=== PATIENT | male | born 1965 | race African-American/Black ===

== ENCOUNTER 2017-09-20 17:00 | Emergency (ER) | payer SELFPAY ==
[2017-09-20 17:21] LABS: ABSOLUTE EOSINOPHILS # (AUTO) 0.1 10^3/uL (0.0-0.6); ABSOLUTE LYMPHOCYTES (AUTO) 3.3 10^3/uL (0.5-4.7); ABSOLUTE MONOCYTES (AUTO) 0.4 10^3/uL (0.1-1.4); ABSOLUTE NEUT (AUTO) 4.2 10^3/uL (1.7-8.2); BASOPHILS % (AUTO) 0.5 % (0-2); EOSINOPHILS % (AUTO) 1.6 % (0-6); HEMATOCRIT 52.2 % (37.9-51.0); HEMOGLOBIN 17.4 g/dL (13.5-17.0); LYMPHOCYTES % (AUTO) 40.9 % (13-45); MEAN CORPUSCULAR HEMOGLOBIN 28.9 pg (27.0-33.4); MEAN CORPUSCULAR HGB CONC 33.2 g/dL (32.0-36.0); MEAN CORPUSCULAR VOLUME 87 fl (80-97); MONOCYTES % (AUTO) 5.3 % (3-13); PLATELET COUNT 263 10^3/uL (150-450); RED CELL DISTRIBUTION WIDTH 14.6 % (11.5-14.0); SEGMENTED NEUTROPHILS % (AUTO) 51.7 % (42-78); TOTAL CELLS COUNTED % (AUTO) 100 %; WHITE BLOOD COUNT 8.1 10^3/uL (4.0-10.5)
--- NOTE | 2017-09-20 17:51 | ER Document Report ---
ED General - General Chief Complaint: Probable Seizure Stated Complaint: ALTERED MENTAL STATUS Time Seen by Provider: 09/20/17 17:38 Mode of Arrival: Medic Information source: Patient, Emergency Med Personnel Notes: 51-year-old male with diabetes, hypertension presents after seizure-like activity while at work. Per EMS upon their arrival patient was confused. Bystanders described that the patient had a change of color, was guided to the ground and then had some tremulous movements that lasted approximately 4 minutes. Upon my exam patient is alert awake and cooperative. He states prior to this episode he states he became very hot, nauseous. he denies any preceding chest pain or sob. Patient reports that he ate lunch at a [employer] restaurant and shortly after he entered went outside into the heat this occurred. Patient states that he thinks he has been dehydrated recently. He denies any nausea, vomiting or diarrhea. He does admit to noncompliance with his blood pressure and diabetic medication, for no particular reason. - HPI Onset: Just prior to arrival Onset/Duration: Sudden Quality of pain: No pain Associated symptoms: Nausea Exacerbated by: Denies Relieved by: Denies Similar symptoms previously: No Recently seen / treated by doctor: No - Related Data Allergies/Adverse Reactions: No Known Allergies Allergy (Unverified 09/20/17 17:30) Past Medical History - General Information source: Patient, Emergency Med Personnel, [facility] Records - Social History Smoking Status: Current Every Day Smoker Smoking Education Provided: Yes - Patient counselled regarding cessation for 4 minutes Frequency of alcohol use: Occasional Drug Abuse: None Lives with: Family Family History: Reviewed & Not Pertinent Patient has suicidal ideation: No Patient has homicidal ideation: No - Past Medical History Cardiac Medical History: Reports: Hx Hypertension Endocrine Medical History: Reports: Hx Diabetes Mellitus Type 2 Review of Systems - Review of Systems Constitutional: denies: Chills, Fever, Weakness EENT: denies: Blurred vision, Difficulty swallowing Cardiovascular: denies: Chest pain, Palpitations, Dyspnea, Dizziness - Near syncope, Lightheaded Respiratory: denies: Hurts to breathe, Short of breath Gastrointestinal: Nausea - Nausea now resolved, Poor fluid intake. denies: Abdominal pain Genitourinary: denies: Dysuria Male Genitourinary: No symptoms reported Musculoskeletal: No symptoms reported Skin: No symptoms reported Hematologic/Lymphatic: No symptoms reported Neurological/Psychological: Seizure -: Yes All other systems reviewed and negative Physical Exam - Vital signs Vitals: Pulse Ox 98 09/20/17 17:22 Interpretation: No: Hypoxic - Notes Notes: PHYSICAL EXAMINATION: GENERAL: Well-appearing, well-nourished and in no acute distress. HEAD: Atraumatic, normocephalic. EYES: Pupils equal round and reactive to light, extraocular movements intact, sclera anicteric, conjunctiva are normal. ENT: Nares patent, oropharynx clear without exudates. Moist mucous membranes. NECK: Normal range of motion, supple without lymphadenopathy LUNGS: Breath sounds clear to auscultation bilaterally and equal. No wheezes rales or rhonchi. HEART: Regular rate and rhythm without murmurs ABDOMEN: Soft, nontender, nondistended abdomen. No guarding, no rebound. No masses appreciated. Musculoskeletal: Normal range of motion, no pitting or edema. No cyanosis. NEUROLOGICAL: Cranial nerves grossly intact. Normal speech, normal gait. Normal sensory, motor exams PSYCH: Normal mood, normal affect. SKIN: Warm, Dry, normal turgor, no rashes or lesions noted. Course - Re-evaluation Re-evalutation: 09/20/17 21:01 Laboratory 09/20/17 09/20/17 09/20/17 16:16 16:16 17:40 WBC 8.1 RBC 6.00 H Hgb 17.4 H Hct 52.2 H MCV 87 MCH 28.9 MCHC 33.2 RDW 14.6 H Plt Count 263 Seg Neutrophils % 51.7 Lymphocytes % 40.9 Monocytes % 5.3 Eosinophils % 1.6 Basophils % 0.5 Absolute Neutrophils 4.2 Absolute Lymphocytes 3.3 Absolute Monocytes 0.4 Absolute Eosinophils 0.1 Absolute Basophils 0.0 Sodium Cancelled Potassium Cancelled Chloride Cancelled Carbon Dioxide Cancelled Anion Gap Cancelled BUN Cancelled Creatinine Cancelled Est GFR ( Amer) Cancelled Est GFR (Non-Af Amer) Cancelled Glucose Cancelled POC Glucose 106 Calcium Cancelled Magnesium Cancelled Total Bilirubin Cancelled Direct Bilirubin Cancelled Neonat Total Bilirubin Cancelled Neonat Direct Bilirubin Cancelled Neonat Indirect Bili Cancelled AST Cancelled ALT Cancelled Alkaline Phosphatase Cancelled Total Protein Cancelled Albumin Cancelled Urine Color Urine Appearance Urine pH Ur Specific [place] Urine Protein Urine Glucose (UA) Urine Ketones Urine Blood Urine Nitrite Urine Bilirubin Urine Urobilinogen Ur Leukocyte Esterase Urine WBC (Auto) Urine RBC (Auto) Squamous Epi Cells Auto Urine Mucus (Auto) Urine Ascorbic Acid Urine Opiates Screen Urine Methadone Screen Ur Barbiturates Screen Ur Phencyclidine Scrn Ur Amphetamines Screen U Benzodiazepines Scrn Urine Cocaine Screen U Marijuana (THC) Screen Serum Alcohol Cancelled 09/20/17 09/20/17 09/20/17 18:03 18:58 18:58 WBC RBC Hgb Hct MCV MCH MCHC RDW Plt Count Seg Neutrophils % Lymphocytes % Monocytes % Eosinophils % Basophils % Absolute Neutrophils Absolute Lymphocytes Absolute Monocytes Absolute Eosinophils Absolute Basophils Sodium Cancelled Potassium Cancelled Chloride Cancelled Carbon Dioxide Cancelled Anion Gap Cancelled BUN Cancelled Creatinine Cancelled Est GFR ( Amer) Cancelled Est GFR (Non-Af Amer) Cancelled Glucose Cancelled POC Glucose Calcium Cancelled Magnesium Cancelled Total Bilirubin Cancelled Direct Bilirubin Cancelled Neonat Total Bilirubin Cancelled Neonat Direct Bilirubin Cancelled Neonat Indirect Bili Cancelled AST Cancelled ALT Cancelled Alkaline Phosphatase Cancelled Total Protein Cancelled Albumin Cancelled Urine Color YELLOW Urine Appearance CLEAR Urine pH 6.0 Ur Specific [place] 1.024 Urine Protein NEGATIVE Urine Glucose (UA) NEGATIVE Urine Ketones NEGATIVE Urine Blood SMALL H Urine Nitrite NEGATIVE Urine Bilirubin NEGATIVE Urine Urobilinogen 4.0 H Ur Leukocyte Esterase NEGATIVE Urine WBC (Auto) 1 Urine RBC (Auto) 3 Squamous Epi Cells Auto <1 Urine Mucus (Auto) RARE Urine Ascorbic Acid NEGATIVE Urine Opiates Screen NEGATIVE Urine Methadone Screen NEGATIVE Ur Barbiturates Screen NEGATIVE Ur Phencyclidine Scrn NEGATIVE Ur Amphetamines Screen NEGATIVE U Benzodiazepines Scrn NEGATIVE Urine Cocaine Screen NEGATIVE U Marijuana (THC) Screen NEGATIVE Serum Alcohol Cancelled 09/20/17 19:28 WBC RBC Hgb Hct MCV MCH MCHC RDW Plt Count Seg Neutrophils % Lymphocytes % Monocytes % Eosinophils % Basophils % Absolute Neutrophils Absolute Lymphocytes Absolute Monocytes Absolute Eosinophils Absolute Basophils Sodium 142.0 Potassium 4.5 Chloride 104 Carbon Dioxide 27 Anion Gap 11 BUN 12 Creatinine 0.85 Est GFR ( Amer) > 60 Est GFR (Non-Af Amer) > 60 Glucose 91 POC Glucose Calcium 9.3 Magnesium 2.4 H Total Bilirubin 0.2 Direct Bilirubin 0.2 Neonat Total Bilirubin Not Reportable Neonat Direct Bilirubin Not Reportable Neonat Indirect Bili Not Reportable AST 36 ALT 41 Alkaline Phosphatase 66 Total Protein 6.7 Albumin 3.9 Urine Color Urine Appearance Urine pH Ur Specific [place] Urine Protein Urine Glucose (UA) Urine Ketones Urine Blood Urine Nitrite Urine Bilirubin Urine Urobilinogen Ur Leukocyte Esterase Urine WBC (Auto) Urine RBC (Auto) Squamous Epi Cells Auto Urine Mucus (Auto) Urine Ascorbic Acid Urine Opiates Screen Urine Methadone Screen Ur Barbiturates Screen Ur Phencyclidine Scrn Ur Amphetamines Screen U Benzodiazepines Scrn Urine Cocaine Screen U Marijuana (THC) Screen Serum Alcohol < 10 51-year-old male with diabetes, hypertension presents after seizure-like activity while at work. Per EMS upon their arrival patient was confused. Bystanders described that the patient had a change of color, was guided to the ground and then had some tremulous movements that lasted approximately 4 minutes. Upon my exam patient is alert awake and cooperative. He states prior to this episode he states he became very hot, nauseous. he denies any preceding chest pain or sob. Patient reports that he ate lunch at a [employer] restaurant and shortly after he entered went outside into the heat this occurred. Upon arrival vitals were reviewed. Patient is mildly hypertensive but afebrile and not hypoxic. Patient has a normal neurologic exam. He has no significant laboratory findings. CT of the head was obtained and significant for an old left occipital infarct. Patient is aware that he did have a previous stroke approximately 6 month prior to arrival. He denies any residual deficits. Patient was monitored in the emergency department for over 3 hours. He did not have any further seizure-like activity. He is requesting refills on his medications which I have provided. Patient was advised not to drive until evaluated by his primary care physician or neurology. It is unclear whether patient had a seizure or near syncope secondary to heat and dehydration. Patient provided the opportunity to ask questions, and express concerns. Discharge instructions discussed. Patient is agreeable with discharge home. Return indications explained and discussed with the patient who displays understanding. Patient encouraged to return to the emergency department immediately with any concerns. 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 No acute intracranial imaging findings. EVIDENCE OF ACUTE STROKE: NO. 09/22/17 09:25 09/22/17 09:25 - Vital Signs Vital signs: Temp Pulse Resp BP Pulse Ox 97.7 F 19 144/98 H 99 09/20/17 17:24 09/20/17 20:48 09/20/17 20:48 09/20/17 20:48 - Laboratory Result Diagrams: 09/20/17 16:16 09/20/17 19:28 Laboratory results interpreted by me: 09/20/17 09/20/17 09/20/17 16:16 18:58 19:28 RBC 6.00 H Hgb 17.4 H Hct 52.2 H RDW 14.6 H Magnesium 2.4 H Urine Blood SMALL H Urine Urobilinogen 4.0 H - Diagnostic Test Radiology reviewed: Image reviewed, Reports reviewed - EKG Interpretation by Me EKG shows normal: Sinus rhythm Rate: Normal Rhythm: NSR, PVC's When compared to previous EKG there are: Previous EKG unavailable Discharge - Discharge Clinical Impression: Observed seizure-like activity, Nonadherence to medication Hypertension Qualifiers: Hypertension type: unspecified Qualified Code(s): I10 - Essential (primary) hypertension Diabetes Qualifiers: Diabetes mellitus type: type 2 Diabetes mellitus fpc insulin use: without termite exterminator helper use Diabetes mellitus complication status: with other specified complication Qualified Code(s): E11.69 - Type 2 diabetes mellitus with other specified complication Condition: Good Disposition: HOME, SELF-CARE Instructions: New Seizure ([facility]) Additional Instructions: Do not drive until reevaluated by your primary care physician or a neurologist. Please take your medications as prescribed. Follow up with your physician tomorrow for further care or return to the ED IMMEDIATELY if symptoms worsen or new concerns occur. If you cannot afford to follow up with your primary care physician a list of low cost clinics have been provided at the end of your discharge papers as well. Prescriptions: Glipizide 5 mg PO DAILY 30 Days #30 tablet Lisinopril 5 mg PO DAILY 30 Days #30 tablet Metformin HCl [Glucophage 500 mg Tablet] 1,000 mg PO BID #120 tablet Metoprolol Tartrate 25 mg PO BID 30 Days #60 tablet Forms: Elevated Blood Pressure, Smoking Cessation Education Referrals: CHILO HERNADEZ MD [ACTIVE STAFF] - Follow up in 3-5 days
[2017-09-20] MEDS ORDERED: NORMAL SALINE 1000 ML 1,000 ML IV ONE (17:53)
--- NOTE | 2017-09-20 18:24 | RADIOLOGY REPORT (SQ) ---
EXAM DESCRIPTION: CT HEAD WITHOUT COMPLETED DATE/TIME: 09/20/2017 6:13 pm REASON FOR STUDY: ams COMPARISON: None. TECHNIQUE: Axial images acquired through the brain without intravenous contrast. Images reviewed wi th bone, brain and subdural windows. Additional sagittal and coronal reconstructions were generated. Images stored on PACS. All CT scanners at this facility use dose modulation, iterative reconstruction, and/or weight based d osing when appropriate to reduce radiation dose to as low as reasonably achievable (ALARA). [facility]: Dose Right [facility]: CareDose [facility]: Dose Right [facility]: Teradose 4D [facility]: Smart Definigen RADIATION DOSE: CT Rad equipment meets quality standard of care and radiation dose reduction techniq ues were employed. CTDIvol: 53.2 mGy. DLP: 964 mGy-cm. mGy. LIMITATIONS: None. FINDINGS: VENTRICLES: Normal size and contour. CEREBRUM: There is an area of encephalomalacia in the left occipital lobe. Normal malone/white matter d ifferentiation. No areas of low density in the white matter. CEREBELLUM: No masses. No hemorrhage. No alteration of density. No evidence for acute infarction. EXTRAAXIAL SPACES: No fluid collections. No masses. ORBITS AND GLOBE: No intra- or extraconal masses. Normal contour of globe without masses. CALVARIUM: No fracture. PARANASAL SINUSES: No fluid or mucosal thickening. SOFT TISSUES: No mass or hematoma. OTHER: No other significant finding. 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 No acute intracranial imaging findings. EVIDENCE OF ACUTE STROKE: NO. COMMENT: Quality ID # [id number]: Final reports with documentation of one or more dose reduction techniques (e.g., Automated exposure control, adjustment of the mA and/or kV according to patient size, use of iterative reconstruction technique) TECHNICAL DOCUMENTATION: JOB ID: [id number] [employer]- All Rights Reserved Reading location - IP/workstation name: [email or web address]
[2017-09-20 19:29] LABS: APPEARANCE,URINE CLEAR; BILIRUBIN,URINE NEGATIVE (NEGATIVE); COLOR,URINE YELLOW; GLUCOSE, URINE NEGATIVE (NEGATIVE); KETONES,URINE NEGATIVE (NEGATIVE); LEUKOCYTE ESTERASE,URINE NEGATIVE (NEGATIVE); NITRITE,URINE NEGATIVE (NEGATIVE); PROTEIN,URINE NEGATIVE (NEGATIVE); URINE SPECIFIC GRAVITY 1.024
[2017-09-20 19:36] LABS: URINE AMPHETAMINES SCREEN NEGATIVE; URINE BARBITURATES SCREEN NEGATIVE; URINE BENZODIAZEPINES SCREEN NEGATIVE; URINE COCAINE SCREEN NEGATIVE; URINE MARIJUANA (THC) SCREEN NEGATIVE; URINE METHADONE SCREEN NEGATIVE; URINE PHENCYCLIDINE SCREEN NEGATIVE
[2017-09-20 20:08] LABS: ALANINE AMINOTRANSFERASE 41 U/L (21-72); ALBUMIN 3.9 g/dL (3.5-5.0); ALKALINE PHOSPHATASE 66 U/L (38-126); ANION GAP 11 (5-19); ASPARTATE AMINO TRANSFERASE 36 U/L (17-59); BILIRUBIN,DIRECT 0.2 mg/dL (0.0-0.4); BILIRUBIN,TOTAL 0.2 mg/dL (0.2-1.3); BLOOD UREA NITROGEN 12 mg/dL (7-20); CALCIUM 9.3 mg/dL (8.4-10.2); CARBON DIOXIDE 27 mmol/L (22-30); CHLORIDE 104 mmol/L (98-107); GLUCOSE 91 mg/dL (75-110); POTASSIUM 4.5 mmol/L (3.6-5.0); TOTAL PROTEIN 6.7 g/dL (6.3-8.2)
[2017-09-20 20:12] LABS: ALCOHOL < 10 mg/dL (NONE DETECTED)
[2017-09-20 21:00] VITALS: BP 144/98
[2017-09-20] MEDS ORDERED: METOPROLOL TARTRATE 25 MG TABLET PO ONE (21:05)
--- NOTE | 2017-09-20 23:43 | EKG REPORT ---
SEVERITY:- BORDERLINE ECG - SINUS RHYTHM VENTRICULAR PREMATURE COMPLEX PROBABLE LEFT ATRIAL ABNORMALITY : Confirmed by: Teetee Callahan 20-Sep-2017 23:42:57
== END 2017-09-20 21:31 | disposition home or self-care (01) ==
LOC: ER 17:00
DX: R25.1 Tremor, unspecified (principal); E11.8 Type 2 diabetes mellitus with unspecified complications; T38.3X6A Underdosing of insulin and oral hypoglycemic [antidiabetic] drugs, initial encounter; I10 Essential (primary) hypertension; T46.4X6A Underdosing of angiotensin-converting-enzyme inhibitors, initial encounter; T44.7X6A Underdosing of beta-adrenoreceptor antagonists, initial encounter; Z91.128 Patient's intentional underdosing of medication regimen for other reason; Z91.14 Patient's other noncompliance with medication regimen; I49.3 Ventricular premature depolarization; F17.200 Nicotine dependence, unspecified, uncomplicated; Z71.6 Tobacco abuse counseling; Z86.73 Personal history of transient ischemic attack (TIA), and cerebral infarction without residual deficits
CPT/HCPCS: 93005; 99285; 96360; 36415; 82962; 80307 ×2; 83735; 85025; 80053; 81001; 70450; 93010; J7030